=== PATIENT | male | born 1965 | race Two or more races ===

== ENCOUNTER 2019-03-16 17:49 | Inpatient (IN) | payer OTHER ==
[~2019-03-16] VITALS: Ht 154.9 cm; Wt 88.5 kg
[~2019-03-16 17:49] MED LIST: ANASPAZ0.125 MG; CIPRO500 MG PO; FLAGYL500MG PO; SIMVASTATIN20 MG
[2019-03-16] MEDS ORDERED: LEVSIN/SL0.125 MG (18:17)
--- NOTE | 2019-03-16 18:17 | NUR ---
SE RECIBE PTE. MASCULINOALERTA CONCIENTE Y ORIENTADO QUE REFIERE DOLOR ADOMINAL LADO KIMMIE PTE. CON REFERIDO PARA SER EVALUADO EN ER. POR DIVERTICULITIS. SE PASA A AREA DE OBSERVACION.
--- NOTE | 2019-03-16 19:16 | NUR ---
SE RECIBE PACIENTE ALERTA Y ORIENTADO EVALUADO POR EL DR. LUCAS SE ORIENTA A APCIENTE SOBRE TRATAMIENTO MEDICO RN ASIA EXTRAE MUESTRAS DE ALEX Y ADMISNITRA MEDICAMENTO MERA ORDEN MEDICA BAJO MEDIDAS ASEPTICAS.
[2019-03-21] MEDS ORDERED: FLAGYL500MG PO (09:30)
[2019-03-21] MEDS ORDERED: CIPRO500 MG PO (09:30)
== END 2019-03-21 10:22 | disposition home or self-care (01) | DRG 392 ==
LOC: ER 17:49 → MEDJ 22:03
PROVIDERS: ADMIT Internal Medicine
PROC: BW21Y0Z Computerized Tomography (CT Scan) of Abdomen and Pelvis using Other Contrast, Unenhanced and Enhanced (ICD-10-PCS; principal; 2019-03-20)
DX: K57.40 Diverticulitis of both small and large intestine with perforation and abscess without bleeding (principal); N39.0 Urinary tract infection, site not specified; E86.0 Dehydration; K58.8 Other irritable bowel syndrome; N20.0 Calculus of kidney; E87.8 Other disorders of electrolyte and fluid balance, not elsewhere classified